=== PATIENT | female | born 1995 | race Caucasian/White ===

== ENCOUNTER 2018-10-31 08:55 | Day surgery (SDC) | payer OTHER ==
[2018-10-31 10:05] LABS: ADD MAN DIFF? NO
[2018-10-31 10:09] LABS: BASOPHILS % 0.3 % (0.0-2.0); EOSINOPHILS # 0.1 10^3/ul (0.0-0.5); EOSINOPHILS % 1.8 % (0.0-7.0); HEMOGLOBIN 11.1 g/dl (12.0-16.0); LYMPHOCYTES % 32.6 % (15.0-51.0); MEAN CORPUSCULAR HEMOGLOBIN 30.9 pg (29.0-33.0); MEAN CORPUSCULAR HGB CONC 32.6 g/dl (32.0-37.0); MEAN CORPUSCULAR VOLUME 94.7 fl (82.0-101.0); MEAN PLATELET VOLUME 10.6 fl (7.4-10.4); MONOCYTE # 0.8 10^3/ul (0.3-0.9); MONOCYTES % 12.8 % (0.0-11.0); NEUTROPHIL # 3.2 10^3/ul (1.6-7.5); NEUTROPHILS % 52.3 % (39.0-77.0); PLATELET COUNT 318 10^3/UL (140-415); RED BLOOD COUNT 3.59 10^6/ul (4.20-5.40); RED CELL DISTRIBUTION WIDTH 13.3 % (11.5-14.5)
[2018-10-31 10:09] LABS: WHITE BLOOD COUNT 6.1 10^3/ul (4.8-10.8)
[2018-10-31] MEDS: SOD CHLORIDE 0.9% 1,000 ML IV (10:12)
[2018-10-31 10:13] LABS: INR 0.99; PROTIME 13.2 Sec (11.9-14.9)
[2018-10-31 10:14] LABS: ANION GAP 8 (5-13); BLOOD UREA NITROGEN 12 mg/dl (7-20); CARBON DIOXIDE 24 mmol/L (21-31); CHLORIDE 110 mmol/L (97-110); CREATININE 0.64 mg/dl (0.44-1.00); Estimated GFR > 60 mL/min (>60); GLUCOSE 83 mg/dl (70-220); PARTIAL THROMBOPLASTIN TIME 34.2 Sec (23.0-35.0); POTASSIUM 3.6 mmol/L (3.5-5.1); SODIUM 142 mmol/L (135-144)
[2018-10-31] MEDS ORDERED: LIDOCAINE 100 MG SYRINGE (10:34)
[2018-10-31] MEDS ORDERED: CEFAZOLIN 1 GM INJ (10:34)
[2018-10-31] MEDS ORDERED: FENTAnyl 50 MCG/ML VIAL (10:35)
[2018-10-31] MEDS ORDERED: MIDAZOLAM 1 MG/ML 2 ML INJ (10:35)
[2018-10-31] MEDS ORDERED: ONDANSETRON 4 MG INJ (10:35)
[2018-10-31] MEDS ORDERED: PROPOFOL 100 ML (10:35)
[2018-10-31] MEDS ORDERED: DEXAMETHASONE 4 MG/ML 5 ML INJ (10:35)
[2018-10-31] MEDS: BUPIVACAINE 0.25%/EPI (SDV) 30 ML INJ (11:00)
[2018-10-31] MEDS ORDERED: PHENYLephrine (100 MCG/ML) 10ML SYG (11:08)
[2018-10-31] MEDS ORDERED: morphine 2 MG INJ IV (11:30)
[2018-10-31] MEDS ORDERED: IBUPROFEN 600 MG TAB PO (11:30)
[2018-10-31] MEDS ORDERED: KETOROLAC 30 MG INJ IV (11:30)
[2018-10-31] MEDS ORDERED: HYDROCODONE/APAP (5/325) TAB PO (11:30)
[2018-10-31] MEDS ORDERED: HYDROmorphONE 1 MG/5 ML IV SYRINGE IV ×3 (11:30)
[2018-10-31] MEDS ORDERED: DIPHENHYDRAMINE 50 MG INJ IV (11:30)
[2018-10-31] MEDS ORDERED: MEPERIDINE 25 MG INJ IV (11:30)
[2018-10-31] MEDS ORDERED: ONDANSETRON 4 MG INJ IV ×2 (11:30)
== END 2018-10-31 13:02 | disposition home or self-care (01) ==
LOC: SDS 08:55
DX: D24.1 Benign neoplasm of right breast (principal)
CPT/HCPCS: 19120; 80048; 85025; 85610; 85730; 88307